=== PATIENT | female | born 1940 | race Caucasian/White ===

== ENCOUNTER → 2016-11-01 | Outpatient (CLI) | payer MEDICARE | END | disposition home or self-care (01) | LOC: CFH 09:19 | PROVIDERS: ATTEND Family Medicine | DX: E04.1 Nontoxic single thyroid nodule (principal) | CPT/HCPCS: 76536 ==

== ENCOUNTER → 2016-11-28 | Outpatient (CLI) | payer MEDICARE ==
[~2016-11-28] MED LIST: LIDOCAINE 1%, 20ML ONE
== END | disposition home or self-care (01) ==
LOC: RAD 12:24
PROVIDERS: ATTEND Otolaryngology
DX: E04.1 Nontoxic single thyroid nodule (principal); D49.7 Neoplasm of unspecified behavior of endocrine glands and other parts of nervous system
CPT/HCPCS: 76942; 88173; J3490

== ENCOUNTER → 2016-12-06 | Outpatient (CLI) | payer MEDICARE ==
[~2016-12-06] MED LIST changes: +ALPR0.5T6 PO; +CBD Oil SL; +CHOL10003 PO; +CYAN250013 PO; +DICL100G8 TD; +IBUP400T PO; +LACT1CAP40 PO; +LEVO25TA4 PO; -LIDOCAINE 1%, 20ML ONE; +LIOT25TA3 PO; +LORA10TA3 PO; +VIT-3 PO; +[UNRECOGNIZED DRUG - OTHER] PO; +[UNRECOGNIZED DRUG - OTHER] PO; +[UNRECOGNIZED DRUG - OTHER] TD
== END | disposition home or self-care (01) ==
LOC: STAR 11:05
PROVIDERS: ATTEND Otolaryngology
DX: Z01.818 Encounter for other preprocedural examination (principal); D49.7 Neoplasm of unspecified behavior of endocrine glands and other parts of nervous system
CPT/HCPCS: 71020; 93005

== ENCOUNTER 2016-12-19 10:55 | Inpatient (IN) | payer MEDICARE ==
[~2016-12-19] VITALS: Ht 167.6 cm; Wt 67.0 kg
[~2016-12-19 10:55] MED LIST changes: +DICL100G19 TD; -DICL100G8 TD; +IBUP-1221 PO; -IBUP400T PO
[2016-12-19] MEDS: LACTATED RINGERS 1,000 ML IV SCH (11:55)
[2016-12-19] MEDS ORDERED: LIDOCAINE/PF 1%, 30ML ONE (12:04)
[2016-12-19] MEDS ORDERED: EPINEPHRINE 1 MG/ML, 1ML ONE (12:04)
[2016-12-19] MEDS ORDERED: MIDAZOLAM 1 MG/ML, 2ML ONE (12:35)
[2016-12-19] MEDS ORDERED: FENTANYL PF 100 MCG/2ML ONE ×2 (12:36→14:30)
[2016-12-19] MEDS ORDERED: ONDANSETRON 2MG/ML, 2ML ONE (12:58)
[2016-12-19] MEDS ORDERED: SUCCINYLCHOLINE 20 MG/ML, 10ML ONE (12:58)
[2016-12-19] MEDS ORDERED: PROPOFOL 10 MG/ML, 20ML ONE (12:58)
[2016-12-19] MEDS ORDERED: CEFAZOLIN 1,000 MG ONE (12:58)
[2016-12-19] MEDS ORDERED: DEXAMETHASONE 4 MG/ML, 1ML ONE (12:58)
[2016-12-19] MEDS ORDERED: METOCLOPRAMIDE 5 MG/ML, 2ML IV PRN (13:30)
[2016-12-19] MEDS ORDERED: LABETALOL 5MG/ML, 20ML IV PRN (13:30)
[2016-12-19] MEDS ORDERED: ONDANSETRON 2MG/ML, 2ML IVPush PRN (13:30)
[2016-12-19] MEDS ORDERED: EPHEDRINE 50 MG/ML, 1ML IVPush PRN (13:30)
[2016-12-19] MEDS ORDERED: PROMETHAZINE 25 MG/ML, 1ML IV PRN (13:30)
[2016-12-19] MEDS ORDERED: hydrALAzine 20 MG/ML, 1ML IV PRN (13:30)
[2016-12-19] MEDS ORDERED: ALBUTEROL SULFATE 2.5 MG/3 ML NPPB PRN (13:30)
[2016-12-19] MEDS ORDERED: METOPROLOL 1 MG/ML, 5ML IV PRN (13:30)
[2016-12-19] MEDS ORDERED: OXYcodone 5 MG/5 ML ORAL.SOL UDC PO PRN (13:30)
[2016-12-19] MEDS ORDERED: ACETAMINOPHEN 325 MG TABLET PO PRN (13:30)
[2016-12-19] MEDS ORDERED: ACETAMINOPHEN 650 MG/20.3 ML UDC ONE (14:30)
[2016-12-19] MEDS ORDERED: OXYcodone 5 MG/5 ML ORAL.SOL UDC ONE (14:31)
[2016-12-19] MEDS: FENTANYL PF 100 MCG/2ML IV PRN ×3 (14:33→14:57)
[2016-12-19] MEDS ORDERED: HYDROmorphone 1 MG/ML, 1ML ONE (15:00)
[2016-12-19] MEDS: HYDROmorphone 1 MG/ML, 1ML IV PRN ×2 (15:06→15:18)
[2016-12-19] MEDS ORDERED: ACETAMINOPHEN 500 MG TABLET PO PRN (16:00)
[2016-12-19] MEDS ORDERED: OXYcodone/APAP 5/325MG TABLET PO PRN (16:00)
[2016-12-19] MEDS ORDERED: MORPHINE SULFATE 4 MG/ML, 1ML IVPush PRN (16:00)
[2016-12-19] MEDS ORDERED: ONDANSETRON ODT 4 MG PO PRN (16:00)
[2016-12-19 16:11] VITALS: BP 155/74
[2016-12-19] MEDS: D5%-0.9% NACL+KCL 20MEQ 1,000 ML IV SCH (17:51)
[2016-12-19 20:01] VITALS: BP 152/81
[2016-12-19 23:29] VITALS: BP 124/64
[2016-12-20] MEDS: D5%-0.9% NACL+KCL 20MEQ 1,000 ML IV SCH (04:30)
[2016-12-20] MEDS ORDERED: LIOTHYRONINE 25 MCG TABLET PO SCH ×2 (06:00→12:00)
[2016-12-20] MEDS ORDERED: LEVOTHYROXINE 25 MCG TABLET PO SCH (06:00)
[2016-12-20] MEDS: LACTATED RINGERS 1,000 ML IV SCH (07:39)
[2016-12-20 08:20] VITALS: BP 116/66
[2016-12-20] MEDS ORDERED: IBUPROFEN 200 MG TABLET PO PRN (09:20)
[2016-12-20 11:24] VITALS: BP 130/71
[2016-12-20] MEDS ORDERED: AMOX-291 PO (12:13)
[2016-12-20] MEDS ORDERED: OXYC-302 PO (12:14)
== END 2016-12-20 12:35 | disposition home or self-care (01) | DRG 627 ==
LOC: OUT 10:55 → 4NOR 15:51 → OUT 16:58 → 4NOR 16:59 → DCLOUNGE 12-20 12:05
PROVIDERS: ADMIT Otolaryngology; ATTEND Otolaryngology
PROC: 0GTG0ZZ Resection of Left Thyroid Gland Lobe, Open Approach (ICD-10-PCS; principal; 2016-12-19 13:00)
DX: E04.1 Nontoxic single thyroid nodule (principal)
CPT/HCPCS: 88307; 88333; J0171; J0690; J1100; J1170; J2250; J2405; J2704; J3010; J3490; Q0162; J0330; J3480; J7120